=== PATIENT | male | born 1990 | race African-American/Black ===

== ENCOUNTER 2018-03-07 17:40 | Emergency (ER) | payer SELFPAY ==
[~2018-03-07] VITALS: Ht 175.3 cm; Wt 63.5 kg
[2018-03-07 17:54] VITALS: BP 136/72
[2018-03-07] MEDS ORDERED: CYCL10TA2 PO (17:54)
[2018-03-07] MEDS ORDERED: MELO15TA6 PO (17:55)
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
== END 2018-03-07 18:27 | disposition home or self-care (01) ==
LOC: ER 17:40
DX: M54.5 Low back pain (principal)
CPT/HCPCS: 99283

== ENCOUNTER 2021-06-14 17:08 | Emergency (ER) | payer SELFPAY ==
[~2021-06-14] VITALS: Ht 177.8 cm; Wt 61.5 kg
[~2021-06-14 17:08] MED LIST: CYCL10TA19 PO; MELO15TA6 PO
[2021-06-14 17:52] VITALS: BP 110/73
--- NOTE | 2021-06-14 18:27 | PHYS DOC ---
Past Medical History Past Medical History: No Pertinent History Past Surgical History: No Surgical History Smoking Status: Never Smoker Alcohol Use: None Drug Use: None General Adult EDM: Chief Complaint: OTHER COMPLAINTS HPI: HPI: Patient is a 31 year old male patient who presents to the ED today requesting a work note. Patient states he called in today because he had bloating and abdominal pain. He states his symptoms have subsided but his job would not let him back without a work note. Review of Systems: Review of Systems: Constitutional: Request follow-up note. Denies fever or chills. [] Eyes: Denies change in visual acuity. [] HENT: Denies nasal congestion or sore throat. [] Respiratory: Denies cough or shortness of breath. [] Cardiovascular: Denies chest pain or edema. [] GI: Previous complaint of abdominal bloating and pain that have subsided, denies any abdominal pain nausea, vomiting, bloody stools or diarrhea. [] : Denies dysuria. [] Musculoskeletal: Denies back pain or joint pain. [] Integument: Denies rash. [] Neurologic: Denies headache, focal weakness or sensory changes. [] Psychiatric: Denies depression or anxiety. [] Heart Score: C/O Chest Pain: N/A Risk Factors: Risk Factors: DM, Current or recent (<one month) smoker, HTN, HLP, family history of CAD, obesity. Risk Scores: Score 0 - 3: 2.5% MACE over next 6 weeks - Discharge Home Score 4 - 6: 20.3% MACE over next 6 weeks - Admit for Clinical Observation Score 7 - 10: 72.7% MACE over next 6 weeks - Early Invasive Strategies Allergies: Allergies: Allergies Coded Allergies Type Severity Reaction Last Updated Verified No Known Drug Allergies 03/07/18 No Physical Exam: PE: Constitutional: Well developed, well nourished, no acute distress, non-toxic appearance. [] HENT: Normocephalic, atraumatic, bilateral external ears normal, oropharynx moist, no oral exudates, nose normal. [] Eyes: PERRLA, EOMI, conjunctiva normal, no discharge. [] Neck: Normal range of motion, no tenderness, supple, no stridor. [] Cardiovascular:Heart rate regular rhythm, no murmur [] Lungs & Thorax: Bilateral breath sounds clear to auscultation [] Abdomen: Bowel sounds normal, soft, no tenderness, no masses, no pulsatile masses. [] Skin: Warm, dry, no erythema, no rash. [] Back: No tenderness, no CVA tenderness. [] Extremities: No tenderness, no cyanosis, no clubbing, ROM intact, no edema. [] Neurologic: Alert and oriented X 3, normal motor function, normal sensory function, no focal deficits noted. [] Psychologic: Affect normal, judgement normal, mood normal. [] Current Patient Data: Vital Signs: Vital Signs Date Time Temp Pulse Resp B/P (MAP) Pulse Ox O2 Delivery O2 Flow Rate FiO2 06/14/21 17:52 98.9 97 10 110/73 (85) 98 Room Air 98.9 EKG: EKG: [] Radiology/Procedures: Radiology/Procedures: [] Course & Med Decision Making: Course & Med Decision Making Pertinent Labs and Imaging studies reviewed. (See chart for details) This is a 31-year-old male patient presented to the ED today requesting a note to return to work, he called in today for abdominal pain and bloating which have subsided but his job would not let him back without a note to return to work. Work note was provided. Dragoscar Disclaimer: Joycelyn Disclaimer: This electronic medical record was generated, in whole or in part, using a voice recognition dictation system. Departure Departure Impression: Primary Impression: Abdominal pain Qualified Codes: R10.84 - Generalized abdominal pain Disposition: HOME / SELF CARE / HOMELESS Condition: STABLE Referrals: NO PCP (PCP) follow up in one week Patient Instructions: Abdominal Pain Additional Instructions: You can return to work tomorrow morning LUIS RAMOS APRN Jun 14, 2021 18:27
== END 2021-06-14 18:30 | disposition home or self-care (01) ==
LOC: ER 17:08
DX: R10.84 Generalized abdominal pain (principal); R14.0 Abdominal distension (gaseous)
CPT/HCPCS: 99281